=== PATIENT | male | born 1985 | race African-American/Black ===

== ENCOUNTER 2019-05-23 13:30 | Emergency (ER) | payer BC ==
[2019-05-23] MEDS ORDERED: METHOCARBAMOL 500 MG TABLET PO ONE (14:13)
[2019-05-23] MEDS ORDERED: KETOROLAC TROMETHAMINE 60 MG/2 ML SDV IM ONE (14:14)
[2019-05-23] MEDS ORDERED: LIDOCAINE 5% (700 MG) TRANSDERMAL ADH..PATCH TP ONE (14:14)
--- NOTE | 2019-05-23 14:17 | ER Document Report ---
HPI - HPI Time Seen by Provider: 05/23/19 14:05 Pain Level: 3 Context: Patient is a 34-year-old male who presents to the emergency department with a chief complaint of low back pain. 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 Patient is able to walk, but states that the pain is severe. He took a friend's muscle relaxer and 1600 mg of ibuprofen with little relief. He denies any numbness or tingling down both legs. Denies history of IV drug abuse, or loss of bladder or bowel function. - ROS Systems Reviewed and Negative: Yes All other systems reviewed and negative - REPRODUCTIVE Reproductive: DENIES: : - MUSCULOSKELETAL Musculoskeletal: REPORTS: Back Pain - Mid lower with radiation to lower extremities - DERM Skin Color: Normal Skin Problems: None Past Medical History - Social History Smoking Status: Never Smoker Frequency of alcohol use: Rare Drug Abuse: None Family History: Reviewed & Not Pertinent Patient has suicidal ideation: No Patient has homicidal ideation: No Vertical Provider Document - CONSTITUTIONAL Agree With Documented VS: Yes Exam Limitations: No Limitations General Appearance: No Apparent Distress, Obese - HEENT HEENT: Atraumatic, Normocephalic, PERRLA - NECK Neck: Normal Inspection - RESPIRATORY Respiratory: Breath Sounds Normal, No Respiratory Distress - CARDIOVASCULAR Cardiovascular: Regular Rate, Regular Rhythm Pulses: Normal: Radial - MUSCULOSKELETAL/EXTREMETIES Musculoskeletal/Extremeties: Tender - Mid lower back, No Edema. negative: FROM - Decreased range of motion to lower extremities due to pain - NEURO Level of Consciousness: Awake, Alert, Appropriate Motor/Sensory: No Motor Deficit, No Sensory Deficit Deep Tendon Reflexes: 2+ - DERM Integumentary: Warm, Dry, No Rash Course - Re-evaluation Re-evalutation: 05/23/19 Differential diagnosis for back pain includes muscle spasm, muscle strain, slipped disc cauda equina syndrome, vertebral fracture, vertebral tumor, epidural abscess, pyelonephritis, or AAA. Based on history and exam, the most likely etiology of the patient's back pain is due to muscle strain. Emergent MRI is not indicated at this time because the patient does not have new weakness, or cauda equina syndrome. Patient does not have bladder or bowel dysfunction. Patient does not have history of IV drug use, therefore, I do not suspect an epidural abscess. Patient does not have recent weight loss or night sweats, and does not have a known history of cancer. Patient's symptoms have improved with Toradol and Robaxin. Patient will follow-up with his primary care provider. I have advised that the patient go to physical therapy to strengthen his back. He is in agreement with this plan. A prescription for Robaxin will be given. Follow-up precautions were given. Verbal discharge instructions were given to the patient. They verbalized understanding. They are stable for discharge. - Vital Signs Vital signs: Temp Pulse Resp BP Pulse Ox 98.8 F 83 151/116 H 100 05/23/19 13:47 05/23/19 13:47 05/23/19 13:47 05/23/19 13:47 Discharge - Discharge Clinical Impression: Low back pain Qualifiers: Chronicity: acute Back pain laterality: midline Sciatica presence: with sciatica Sciatica laterality: bilateral sciatica Qualified Code(s): M54.42 - Lumbago with sciatica, left side Condition: Stable Disposition: HOME, SELF-CARE Instructions: Low Back Pain ([facility]), Muscle Strain ([facility]) Additional Instructions: You were seen today in the emergency department for back pain. Your back pain is most consistent with sciatic nerve pain and a muscle strain. You may take ibuprofen 600 mg and acetaminophen 1000 mg every 6 hours as needed for the pain. You can also take Robaxin, the medication prescribed to you. Please take it as directed. Follow-up with your primary care provider. Please see if you can get a referral for physical therapy. You may also buy [id number] Aspercreme with lidocaine and apply to the area per box instructions. If you develop a fever greater than 100.4 F, lose bowel or bladder function, are unable to walk, or have any symptoms that are worrisome to you, please return to the emergency department.. Prescriptions: Methocarbamol [Robaxin 500 mg Tablet] 1,000 mg PO BID PRN #60 tablet PRN Reason: Forms: Return to Work Referrals: CARMENCITA LEE MD [Primary Care Provider] - Follow up as needed
[2019-05-23 16:13] VITALS: BP 143/97
== END 2019-05-23 16:09 | disposition home or self-care (01) ==
LOC: ER 13:30
DX: M54.42 Lumbago with sciatica, left side (principal)
CPT/HCPCS: 99283; 96372; J1885